=== PATIENT | female | born 1995 | race Caucasian/White ===

== ENCOUNTER 2022-02-25 19:21 | Emergency (ER) | payer BC | END 2022-02-25 22:30 | disposition home or self-care (01) | LOC: JD.ED 19:21 | DX: O20.9 Hemorrhage in early pregnancy, unspecified (principal); Z3A.10 10 weeks gestation of pregnancy | CPT/HCPCS: 36415; 76817; 76817-26; 84702; 85014; 85018; 86900; 86901; 99283; 99284-25 ==

== ENCOUNTER 2022-10-16 19:53 | Inpatient (IN) | payer BC ==
[2022-10-16] MEDS ORDERED: Calcium Carbonate 500 MG Tab.Chew PO PRN (20:20)
[2022-10-16] MEDS ORDERED: Acetaminophen 325 MG Tab PO PRN (20:20)
[2022-10-16] MEDS ORDERED: Nalbuphine 10 MG/0.5 ML Syringe IVPUSH PRN (20:20)
[2022-10-16] MEDS ORDERED: Lidocaine 1% 50 ML MDV INJECT PRN (20:20)
[2022-10-16] MEDS ORDERED: Ondansetron 4 MG/2 ML SDV IVPUSH PRN (20:20)
[2022-10-16] MEDS ORDERED: Oxytocin/Lactated Ringers 10 UNIT/1,000 ML BAG IV SCH ×2 (20:30)
[2022-10-16] MEDS: Lactated Ringers 1,000 ML IV SCH ×2 (21:00→22:46)
[2022-10-16] MEDS ORDERED: Acetaminophen 325 MG Tab PO ONE (22:37)
[2022-10-16] MEDS ORDERED: GENTAMICIN IV ONE (22:38)
[2022-10-16] MEDS ORDERED: SODIUM CHLORIDE 0.9% IV ONE (22:38)
[2022-10-16] MEDS ORDERED: Ampicillin 2 GM in Sodium Chloride 0.9% 100 ML IV SCH (22:45)
[2022-10-16] MEDS ORDERED: Bupivacaine/fentaNYL/NS 100 ML Bag EPIDUR PRN (23:20)
[2022-10-16] MEDS ORDERED: diphenhydrAMINE 50 MG/ML SDV IVPUSH PRN (23:20)
[2022-10-16] MEDS ORDERED: fentaNYL 100 MCG/2 ML SDV EPIDUR PRN (23:20)
[2022-10-16] MEDS ORDERED: ePHEDrine 50 MG/ML SDV IVPUSH PRN (23:20)
[2022-10-16 23:27] LABS: CORONAVIRUS COVID-19 NAA NEGATIVE (NEGATIVE)
[2022-10-17] MEDS: Lactated Ringers 1,000 ML IV SCH (00:14)
[2022-10-17] MEDS ORDERED: Phenylephrine HCl In 0.9% NaCl 1 MG/10 ML Vial ONE (02:00)
[2022-10-17] MEDS ORDERED: Ropivacaine 0.2% PF 2 MG/ML 20 ML SDV ONE (02:00)
[2022-10-17] MEDS ORDERED: Methylergonovine 0.2 MG/1 ML Amp IM ONE (03:00)
[2022-10-17] MEDS ORDERED: Benzocaine/Menthol 20%-0.5% Spray 78 GM Cannister TOP PRN (03:33)
[2022-10-17] MEDS ORDERED: Witch Hazel Medicated Pads 40/Jar TOP PRN (03:33)
[2022-10-17] MEDS ORDERED: Acetaminophen 325 MG Tab PO PRN (03:33)
[2022-10-17] MEDS ORDERED: Citalopram 20 MG Tab PO SCH (09:00)
[2022-10-17] MEDS: Ibuprofen 600 MG Tab PO PRN (17:24)
[2022-10-17] MEDS: Docusate Sodium 100 MG Cap PO PRN (21:44)
[2022-10-18] MEDS: Docusate Sodium 100 MG Cap PO PRN (08:39)
[2022-10-18] MEDS: Ibuprofen 600 MG Tab PO PRN (08:39)
== END 2022-10-18 10:30 | disposition home or self-care (01) | DRG 560 ==
LOC: JD.OBCHECK 19:53 → JD.OB 19:54 → JD.OBCHECK 20:19 → JD.OB 20:20 → OBSVTOIN 10-17 02:48 → JD.OB 10-17 02:49
PROVIDERS: ADMIT Obstetrics & Gynecology; ATTEND Obstetrics & Gynecology
PROC: 10E0XZZ Delivery of Products of Conception, External Approach (ICD-10-PCS; principal; 2022-10-17)
PROC: 0KQM0ZZ Repair Perineum Muscle, Open Approach (ICD-10-PCS; 2022-10-17)
PROC: 10H07YZ Insertion of Other Device into Products of Conception, Via Natural or Artificial Opening (ICD-10-PCS; 2022-10-17)
PROC: 10907ZC Drainage of Amniotic Fluid, Therapeutic from Products of Conception, Via Natural or Artificial Opening (ICD-10-PCS; 2022-10-17)
PROC: 3E0R3BZ Introduction of Anesthetic Agent into Spinal Canal, Percutaneous Approach (ICD-10-PCS; 2022-10-17)
PROC: 00HU33Z Insertion of Infusion Device into Spinal Canal, Percutaneous Approach (ICD-10-PCS; 2022-10-17)
DX: O48.0 Post-term pregnancy (principal); Z3A.40 40 weeks gestation of pregnancy; Z37.0 Single live birth; O77.0 Labor and delivery complicated by meconium in amniotic fluid; O76 Abnormality in fetal heart rate and rhythm complicating labor and delivery; O99.344 Other mental disorders complicating childbirth; O70.1 Second degree perineal laceration during delivery; F41.9 Anxiety disorder, unspecified; Z20.822 Contact with and (suspected) exposure to COVID-19
CPT/HCPCS: 01967; 0241U; 36415; 51701; 59025; 59409; 85027; 86592; 86850; 86900; 86901; A9270-GY; J0290; J1580; J2210; J2590; J2795; J3490; J7120